=== PATIENT | male | born 1940 | race Caucasian/White ===

== ENCOUNTER → 2016-12-03 | Outpatient (CLI) | payer MEDICARE, OTHER ==
--- NOTE | 2016-12-03 10:27 | KCIC ---
PROCEDURE CT chest without contrast. HISTORY Pulmonary nodules. Melanoma. TECHNIQUE Axial images and coronal and sagittal re-formatted images are provided. One or more of the following individualized dose reduction techniques were utilized for this exam: 1. Automated exposure control. 2. Adjustment of the mA and/or kV according to patient's size. 3. Use of iterative reconstruction technique. COMPARISON March 04, 2016. May 06, 2015. FINDINGS Pulmonary nodules in the right upper lobe with tree-in-bud distribution are noted up to 4 millimeters in size, increased in number from 2016. Right lower lobe pulmonary nodules peripherally also appear to have tree-in-bud distribution and are slightly increased in number. Nodules in the left lower lobe with tree-in-bud distribution appear decreased from prior in the band like consolidation noted on prior study in the left lower lobe has resolved. Few new nodules are noted in the left upper lobe, ground-glass, for example axial image 38, also under 4 millimeters in size. There is no new consolidation. There is no pleural effusion. Central airways are patent. Left thyroid nodule is stable. The heart is not enlarged. Coronary artery calcifications are noted. Pulmonary outflow tract appears dilated, right main pulmonary artery diameter 3.6 centimeters. There is no adrenal mass. There are degenerative changes in the spine. IMPRESSION - Pulmonary nodules up to 4 millimeters in size mostly of tree-in-bud distribution, are increased in number compared to a year ago. Findings are nonspecific. Both infectious and inflammatory etiologies should be considered. Atypical infection should be considered. Metastatic disease is considered less likely. - Enlarged pulmonary outflow track, can be a finding of pulmonary arterial hypertension. - Coronary artery calcifications. Electronically signed by: Carson Salgado MD (Dec 03, 2016 10:26:06)
== END | disposition home or self-care (01) ==
LOC: KCIC CT 08:42
PROVIDERS: ATTEND Internal Medicine Pulmonary Disease
DX: R91.1 Solitary pulmonary nodule (principal); I25.10 Atherosclerotic heart disease of native coronary artery without angina pectoris; I27.2 Other secondary pulmonary hypertension
CPT/HCPCS: 71250